=== PATIENT | female | born 1990 ===

== ENCOUNTER 2017-01-11 10:36 | Emergency (ER) | payer OTHER ==
[2017-01-11 11:47] VITALS: BP 110/77
[2017-01-11] MEDS ORDERED: Tetan/Diph/Pertus SYR(Tdap)* 0.5 ML SYR(BOOSTRIX) use SYR IM ONE (11:59)
--- NOTE | 2017-01-11 12:00 | UC ---
Hand/Wrist HPI - HPI Summary HPI Summary: 26 female presents with complaints of needing a tetanus booster after sustaining a puncture wound to her hand by a eulalio nail yesterday 01/10/17. Patient states the nail did puncture her skin right in between her left 2nd and 3rd digit. She does not think it hit the bone. Able to move her hand and fingers with minimal pain. Complains of swelling, redness, and soreness. She is here to have her tetanus update. Denies open laceration at this time. Was able to pull entire nail out and denies foreign body. - History Of Current Complaint Chief Complaint: UCSkin Stated Complaint: LEFT HAND INJURY Time Seen by Provider: 01/11/17 11:47 Hx Obtained From: Patient Hx Last Menstrual Period: 01/02/17 on nexplanon ?: No Onset/Duration: Sudden Onset Severity Initially: Mild Severity Currently: Mild Pain Intensity: 1 Pain Scale Used: 0-10 Numeric Character Of Pain: Aching Aggravating Factor(s): Movement - but is able to, full ROM Alleviating: OTC Meds Associated Signs And Symptoms: Positive: Swelling, Redness - Allergies/Home Medications Allergies/Adverse Reactions: Allergies Allergy/AdvReac Type Severity Reaction Status Date / Time No Known Allergies Allergy Verified 01/11/17 11:32 PMH/Surg Hx/FS Hx/Imm Hx Endocrine History Of: Denies: Diabetes Cardiovascular History Of: Denies: Hypertension Respiratory History Of: Denies: Asthma - Surgical History Surgical History: None - Family History Known Family History: Positive: None - Social History Alcohol Use: None Substance Use Type: None Smoking Status (MU): Never Smoked Tobacco - Immunization History Most Recent Tetanus Shot: unknown Review of Systems Constitutional: Negative Skin: Other - wound from punture by nail on left hand Eyes: Negative Respiratory: Negative Cardiovascular: Negative Motor: Negative Neurovascular: Negative Musculoskeletal: Myalgia - some soreness of area that was punctured on left hand Neurological: Negative All Other Systems Reviewed And Are Negative: Yes Physical Exam Triage Information Reviewed: Yes Appearance: Well-Appearing, No Pain Distress, Well-Nourished Vital Signs: Initial Vital Signs Temp 98.6 F 01/11/17 11:29 Pulse 62 01/11/17 11:29 Resp 14 01/11/17 11:29 BP 110/77 01/11/17 11:29 Pulse Ox 100 01/11/17 11:29 Vital Signs Reviewed: Yes Eyes: Positive: Conjunctiva Clear ENT: Positive: Hearing grossly normal Neck: Positive: Supple, Nontender Respiratory: Positive: Chest non-tender, Lungs clear, Normal breath sounds Cardiovascular: Positive: RRR, No Murmur, Pulses Normal, Brisk Capillary Refill - < 2 second bilateral Musculoskeletal: Positive: Strength Intact - sensation and skin intact., ROM Intact, Edema @ - inbetween left 2nd and 3rd PIP joint. healing puncture wound noted. no bleeding or discharge. mild tenderness on palpation, sore. Neurological Exam: Normal Psychological Exam: Normal Skin: Positive: Other - healing puncture wound and abrasion on left hand between 2-3 PIP joint. no discharge or bleeding. scab already forming Diagnostics - Radiology left hand x-ray Xray Interpretation: No Acute Changes - NO FRACTURE OR FOREIGN BODY. Radiology Interpretation Completed By: Radiologist Hand/Wrist Course/Dx - Course Course Of Treatment: x-ray was obtained to rule out foreign body and fracture. tetanus updated. ibuprofen and ice area for pain and swelling - Differential Dx/Diagnosis Differential Diagnosis/HQI/PQRI: Cellulitis, Contusion, Dislocation, Foreign Body, Fracture, Infection, Puncture Wound, Strain Provider Diagnoses: healing puncture wound, update tetanus Discharge - Discharge Plan Condition: Stable Disposition: HOME Patient Education Materials: Soft Tissue Foreign Body (ED) Referrals: No Primary Care Phys,NOPCP [Primary Care Provider] - [facility] [Outside] Additional Instructions: Continue taking ibuprofen for pain and inflammation. Start icing the area to help with swelling. Watch for signs of infection such as swelling, redness, discharge and fever. If pain is worsening or increases please seek medical attention.
--- NOTE | 2017-01-11 12:05 | RAD ---
INDICATION: Left hand injury COMPARISON: None TECHNIQUE: AP and lateral views were obtained. FINDINGS: The bony structures, joint spaces, and soft tissues are normal for age. IMPRESSION: NO FRACTURE OR FOREIGN BODY.
== END 2017-01-11 12:14 | disposition home or self-care (01) ==
LOC: UCCORT 10:36
DX: S61.432A Puncture wound without foreign body of left hand, initial encounter (principal); W45.0XXA Nail entering through skin, initial encounter; Y93.9 Activity, unspecified; Y92.9 Unspecified place or not applicable; Z23 Encounter for immunization
CPT/HCPCS: 90471; 90715; 99201; G0463

== ENCOUNTER 2017-12-06 12:14 | Emergency (ER) | payer BC, OTHER ==
[2017-12-06 13:43] VITALS: BP 98/63
--- NOTE | 2017-12-06 14:12 | UC ---
Abdominal Pain Female HPI - HPI Summary HPI Summary: For 7 days she has had decreased appetite, diffuse intermittent abd pain and cramping that is mainly in the LUQ. She had diarrhea for one full day and now she is having more formed stool only one time a day or so. Yesterday, she felt better and ate a hamburger and had severe LUQ pain for a while. Today, this has completely resolved but she is worried to continue to eat normally. She does work in Agriculture and takes care of lifestock. - History of Current Complaint Chief Complaint: UCGI Stated Complaint: STOMACH COMPLAINT Time Seen by Provider: 12/06/17 13:36 Hx Obtained From: Patient Hx Last Menstrual Period: 12/06/17 ?: No Onset/Duration: Gradual Onset, Lasting Days Timing: Intermittent Episodes Lasting: - hours. Severity Initially: Moderate Severity Currently: Moderate Pain Intensity: 0 Location: Diffuse, Discrete At: LUQ, Epigastric Character: Aching, Colicy, Cramping Aggravating Factor(s): Food Alleviating Factor(s): OTC Analgesics, Spontaneous Resolution Associated Signs and Symptoms: Positive: Diaphoresis, Decreased Appetite, Nausea. Negative: Fever, Chest Pain, Dizzy, Constipation, Blood in Stool, Urinary Symptoms, Vaginal Bleeding, Vaginal Discharge Allergies/Adverse Reactions: Allergies Allergy/AdvReac Type Severity Reaction Status Date / Time No Known Allergies Allergy Verified 12/06/17 13:32 PMH/Surg Hx/FS Hx/Imm Hx Previously Healthy: Yes - NO prior abd surgery. - Surgical History Surgical History: None - Family History Known Family History: Positive: None - Social History Occupation: Employed Full-time Alcohol Use: None Substance Use Type: None Smoking Status (MU): Never Smoked Tobacco - Immunization History Most Recent Tetanus Shot: unknown Review of Systems Gastrointestinal: Abdominal Pain, Nausea Genitourinary: Negative All Other Systems Reviewed And Are Negative: Yes Physical Exam Triage Information Reviewed: Yes Appearance: Well-Appearing, No Pain Distress, Well-Nourished Vital Signs: Initial Vital Signs Temp 99.8 F 12/06/17 13:32 Pulse 80 12/06/17 13:32 Resp 16 12/06/17 13:32 BP 98/63 12/06/17 13:32 Pulse Ox 99 12/06/17 13:32 Vital Signs Reviewed: Yes Eyes: Positive: Conjunctiva Clear ENT: Positive: Pharynx normal, TMs normal, Uvula midline. Negative: Pharyngeal erythema, Nasal congestion, Nasal drainage, TM bulging, TM dull, TM red, Tonsillar swelling, Tonsillar exudate, Trismus, Sinus tenderness Neck: Positive: Supple, Nontender. Negative: No Lymphadenopathy Respiratory: Positive: Normal breath sounds, No respiratory distress, No accessory muscle use. Negative: Respiratory distress, Decreased breath sounds, Accessory muscle use, Crackles, Rhonchi, Stridor, Wheezing Cardiovascular: Positive: RRR, No Murmur Abdominal Exam: Other - Neg larsen's. Abdomen Description: Positive: Soft. Negative: CVA Tenderness (R), CVA Tenderness (L), Distended, Guarding Musculoskeletal: Positive: Strength Intact, ROM Intact Neurological: Positive: Alert, Muscle Tone Normal. Negative: Fatigued Psychological: Positive: Age Appropriate Behavior Skin: Negative: rashes Abd Pain Female Course/Dx - Course Course Of Treatment: Benign exam and vitals. Currently completely asymptomatic. She may be at higher risk for bacterial infection, parasitic and listeria due to her exposure with agriculture. We will send stool. Labs to assess as well. She agrees to go to ED if she gets bleeding, worsenign pain, consistent pain, or fever. She will othewise f/u with PCP in [place]. - Differential Dx/Diagnosis Provider Diagnoses: enteritis Discharge - Discharge Plan Condition: Good Disposition: HOME Patient Education Materials: Colitis (ED), Enteritis (ED) Referrals: No Primary Care Phys,NOPCP [Primary Care Provider] - Additional Instructions: REturn to the ED for more testing should symptoms get worse otherwise return to [place] Primary care doctor for follow up. Stool studies should be back in 2-3 days.
[2017-12-06 18:25] LABS: ABS Basophils 0 10^3/ul (0-0.2); ABS Eosinophils 0.2 10^3/ul (0-0.6); ABS Lymphocytes 1.8 10^3/ul (1.0-4.8); ABS Monocytes 0.7 10^3/ul (0-0.8); ABS Nucleated RBC 0 10^3/ul; Eosinophil % 2.8 % (0-6); Hematocrit 41 % (35-47); Lymphocyte % 30.8 % (25-47); Mean Corpuscular HGB Conc 34 g/dl (31-36); Mean Corpuscular Hemoglobin 30 pg (27-31); Mean Corpuscular Volume 90 fL (80-97); Mean Platelet Volume 7 um3 (7.4-10.4); Nucleated Red Blood Cells % 0; Platelet Count 371 10^3/ul (150-450); Red Blood Count 4.63 10^6/ul (4.0-5.4); Red Cell Distribution Width 12 % (10.5-15); White Blood Count 5.7 10^3/ul (3.5-10.8)
[2017-12-06 18:36] LABS: EGFR Non-African American 93.5 (>60)
== END 2017-12-06 14:45 | disposition home or self-care (01) ==
LOC: UCCORT 12:14
DX: K52.9 Noninfective gastroenteritis and colitis, unspecified (principal); Z32.02 Encounter for pregnancy test, result negative
CPT/HCPCS: 36415; 80053; 81003; 83690; 84702; 85025; 99211; G0463